=== PATIENT | female | born 1980 | race Caucasian/White ===

== ENCOUNTER → 2016-09-09 | Day surgery (SDC) | payer OTHER ==
[~2016-09-09] VITALS: Ht 162.6 cm; Wt 117.2 kg
[~2016-09-09] MED LIST: SYNTHROID75 MCG PO
[2016-09-09 09:50] LABS: HCT 35.3 % (37.0-47.0); HGB 11.7 g/dl (12.5-16.0); MCH 26.5 pg (25.0-31.0); MCHC 33.1 g/dL (32.0-36.0); MCV 79.9 fL (78.0-100.0); MPV 8.7 fL (6.0-9.5); RBC 4.42 M/uL (4.20-5.40); RDW 14.4 % (11.5-14.0); WBC 7.7 K/uL (4.0-10.5)
[2016-09-09 10:02] LABS: INR 0.98 (0.9-1.2); PROTHROMBIN TIME 12.6 SECONDS (11.7-14.0); PTT 26.9 SECONDS (23.2-31.4)
[2016-09-09 10:11] LABS: ALBUMIN 4.1 g/dL (3.5-5.0); BILIRUBIN - TOTAL 0.3 mg/dL (0.1-1.0); CREATININE 0.9 mg/dL (0.5-1.0); GLOBULIN (CALCULATION) 3.1 g/dL (2.2-4.2); POTASSIUM 3.7 mmol/L (3.5-5.1); TOTAL PROTEIN 7.2 g/dL (6.4-8.3)
[2016-09-09 10:36] LABS: TSH (THYROID STIM HORMONE) 5.14 uIU/mL (0.270-4.200); VITAMIN D (25-OH) 13.72 ng/mL (20.0-)
[2016-09-09 10:39] LABS: FOLIC ACID (SERUM) 9.7 ng/mL (4.4-31.0)
== END | disposition home or self-care (01) ==
LOC: FAS 08:15
PROVIDERS: Surgery
DX: K29.50 Unspecified chronic gastritis without bleeding (principal); K44.9 Diaphragmatic hernia without obstruction or gangrene; K21.9 Gastro-esophageal reflux disease without esophagitis; E66.01 Morbid (severe) obesity due to excess calories; E03.9 Hypothyroidism, unspecified; D64.9 Anemia, unspecified; E07.9 Disorder of thyroid, unspecified; Z68.41 Body mass index [BMI] 40.0-44.9, adult; Z90.49 Acquired absence of other specified parts of digestive tract; Z79.899 Other long term (current) drug therapy; Z98.890 Other specified postprocedural states
CPT/HCPCS: 36415; 80053; 80061; 82306; 82607; 82728; 82746; 83036; 83540; 83550; 84425; 84443; 84703; 85610; 85730; 88305; J2704